=== PATIENT | female | born 1970 | race Caucasian/White ===

== ENCOUNTER 2016-09-27 16:51 | Emergency (ER) | payer OTHER ==
[~2016-09-27] VITALS: Ht 165.1 cm; Wt 62.1 kg
--- NOTE | 2016-09-27 17:08 | NUR ---
PT IS IN ROOM #2A. DR ÁLVAREZ EVALUATED THE PT.
[2016-09-27] MEDS ORDERED: LIDOCAINE 1%-EPI 1:100,000 20 ML VIAL TP ONE (17:15)
--- NOTE | 2016-09-27 18:34 | NUR ---
Patient discharged home in stable conditon. Dressing applied as orderd by MD. Written and verbal after care instructions given. Patient verbalizes understanding of instructions.
--- NOTE | 2016-09-27 18:34 | NUR ---
PT WAS D/C TO HOME. D/C INSTRUCTIONS GIVEN TO THE PT. NO BLEEDING. GAIT IS STABLE.
[2016-09-27 18:36] VITALS: BP 119/85
== END 2016-09-27 18:36 | disposition home or self-care (01) ==
LOC: ER 16:56
DX: S81.011A Laceration without foreign body, right knee, initial encounter (principal); Z88.1 Allergy status to other antibiotic agents; W01.0XXA Fall on same level from slipping, tripping and stumbling without subsequent striking against object, initial encounter; Y93.89 Activity, other specified; Y99.8 Other external cause status; Y92.89 Other specified places as the place of occurrence of the external cause
CPT/HCPCS: A4663; J3490